=== PATIENT | male | born 1950 | race Two or more races ===

== ENCOUNTER 2017-01-01 08:36 | Day surgery (SDC) | payer OTHER ==
[2017-01-01] VITALS (9 sets, daily range): BP systolic 149–163; BP diastolic 66–81; PULSE 52–72; RESP 14–24; Ht 162.6 cm; Wt 79.7 kg
[~2017-01-01] VITALS: Ht 162.6 cm; Wt 79.7 kg
[2017-01-01] MEDS ORDERED: SOD CHLORIDE 0.9% 1,000 ML IV ONE (09:00)
[2017-01-01] MEDS ORDERED: CEFAZOLIN 2 GM/50 ML (PMX) 50 ML IVPB ONE (09:00)
[2017-01-01 10:18] LABS: ADD SCAN DIFF NO
[2017-01-01 10:36] LABS: BASOPHIL # 0.1 10^3/ul (0.0-0.1); BASOPHILS % 0.6 % (0.0-2.0); EOSINOPHILS # 1.2 10^3/ul (0.0-0.5); EOSINOPHILS % 11.3 % (0.0-7.0); HEMOGLOBIN 13.1 g/dl (14.0-18.0); LYMPHOCYTES % 48.1 % (15.0-51.0); MEAN CORPUSCULAR HEMOGLOBIN 29.8 pg (29.0-33.0); MEAN CORPUSCULAR HGB CONC 32.8 g/dl (32.0-37.0); MEAN CORPUSCULAR VOLUME 90.9 fl (82.0-101.0); MEAN PLATELET VOLUME 9.9 fl (7.4-10.4); MONOCYTE # 0.6 10^3/ul (0.3-0.9); NEUTROPHIL # 3.5 10^3/ul (1.6-7.5); NEUTROPHILS % 33.7 % (39.0-77.0); PLATELET COUNT 273 10^3/UL (140-415); RED CELL DISTRIBUTION WIDTH 12.5 % (11.5-14.5); WHITE BLOOD COUNT 10.3 10^3/ul (4.8-10.8)
--- NOTE | 2017-01-01 10:37 | RADRPT ---
PROCEDURE: XR Chest. CLINICAL INDICATION: Preoperative, left shoulder mass TECHNIQUE: Single frontal view of the chest was obtained COMPARISON: None FINDINGS: The heart and mediastinum are within normal limits. The lungs are clear. There is no pleural effusion or pneumothorax. RPTAT: AA IMPRESSION: No acute disease. .Agustin Hernández MD, MD Date Time Electronically viewed and signed by .Agustin Hernández MD, on 01/01/2017 10:37 .S/
[2017-01-01] MEDS ORDERED: FINA5TAB4 PO (10:48)
[2017-01-01] MEDS ORDERED: TAMS0.4C2 PO (10:49)
[2017-01-01 10:57] LABS: ALBUMIN 4.6 g/dl (3.3-4.9); ALBUMIN/GLOBULIN RATIO 2.09; BILIRUBIN,INDIRECT 0.3 mg/dl (0-1.1); BILIRUBIN,TOTAL 0.3 mg/dl (0.2-1.3); TOTAL PROTEIN 6.8 g/dl (6.1-8.1)
[2017-01-01 10:59] LABS: INR 1.01; PARTIAL THROMBOPLASTIN TIME 33.2 Sec (25.0-35.0); PROTIME 13.3 Sec (12.2-14.2)
[2017-01-01 11:02] LABS: CALCIUM 9.3 mg/dl (8.4-10.2); CREATININE 0.85 mg/dl (0.61-1.24); POTASSIUM 4.4 mmol/L (3.5-5.1)
[2017-01-01] MEDS ORDERED: MIDAZOLAM 1 MG/ML 2 ML INJ ONE (11:05)
[2017-01-01] MEDS ORDERED: FENTAnyl 50 MCG/ML VIAL ONE (11:06)
[2017-01-01] MEDS ORDERED: BUPIVACAINE 0.25% (MPF) 30 ML INJ ONE (11:21)
[2017-01-01] MEDS ORDERED: FENTAnyl 50 MCG/ML VIAL IV PRN (11:30)
[2017-01-01] MEDS ORDERED: hydrALAzine 20 MG INJ IV PRN (11:30)
[2017-01-01] MEDS ORDERED: DIPHENHYDRAMINE 50 MG INJ IV PRN (11:30)
[2017-01-01] MEDS ORDERED: ONDANSETRON 4 MG INJ IV PRN (11:30)
[2017-01-01] MEDS ORDERED: MEPERIDINE 25 MG INJ IV PRN (11:30)
[2017-01-01] MEDS ORDERED: LIDOCAINE 2% (SDV) 5 ML INJ ONE (11:48)
[2017-01-01] MEDS ORDERED: CEFAZOLIN 1 GM INJ ONE (11:48)
[2017-01-01] MEDS ORDERED: PROPOFOL 20 ML ONE (11:48)
[2017-01-01] MEDS ORDERED: ONDANSETRON 4 MG INJ ONE (11:49)
--- NOTE | 2017-01-01 12:08 | OPR ---
DATE OF OPERATION: 01/01/2017 PREOPERATIVE DIAGNOSIS: Left shoulder mass. POSTOPERATIVE DIAGNOSIS: Left shoulder mass. OPERATION PERFORMED: Resection of left shoulder mass with local skin flap advancement closure. ANESTHESIA: General. ANESTHESIOLOGIST: Silvio Aleman MD SURGEON: Dr. Hamilton SALES ENGINEER: Dr. Andrade INDICATIONS FOR PROCEDURE: The patient is a 66-year-old male who presented with an enlarging left s houlder mass, clinically benign, such as a large epidermal inclusion cyst or lipoma. 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 He consented and was scheduled for surgery. DESCRIPTION OF PROCEDURE: The patient was brought to the operating theater and placed under general anesthesia. He was then put in the lateral position with the left side up. The left shoulder in t he region of the mass was prepped and draped in the usual sterile fashion. The mass was at least 6 to 8 cm in diameter. An approximately 8-cm incision was made transversely over the mass. The subcut aneous tissue was dissected with cautery. In the subcutaneous space, a very well encapsulated mass was encountered. It was clinically consistent with a probable epidermal inclusion cyst. It was cir cumferentially dissected down to the deltoid muscle. It was then transected, removed, and sent for p ermanent pathologic analysis. The wound was irrigated. Minimal bleeding was controlled with cauter y. The area was infiltrated with 0.5% Marcaine local anesthetic with epinephrine, and the skin was then reapproximated with 2-0 nylon sutures in interrupted fashion. The patient tolerated the proced ure well. Estimated blood loss was 20 mL. There were no complications and the patient was transpor kenna in stable condition to the recovery room. Dictated By: YANIQUE PYLE/KYLEE Conf#: [id number] DID#: [id number]
--- NOTE | 2017-01-02 16:59 | RADRPT ---
Vent Rate: 44 bpm RR Interval: 0 msec VT Interval: 180 msec QRS Duration: 94 msec QT Interval: 450 msec QTC Interval: 384 msec P-R-T [place]: 47 - 62 - 58 degrees Marked sinus bradycardia Abnormal ECG No previous tracing available for comparison Electronically Signed By: Gustavo Campbell [id number]
== END 2017-01-01 13:30 | disposition home or self-care (01) ==
LOC: SDS 08:36
PROVIDERS: ATTEND Surgery Surgical Oncology
DX: L72.0 Epidermal cyst (principal); N40.0 Benign prostatic hyperplasia without lower urinary tract symptoms
CPT/HCPCS: 14000; 71010; 80053; 85025; 85610; 85730; 88304; 93005; J0690; J2250; J2405; J3010

== ENCOUNTER 2017-02-22 00:36 | Emergency (ER) | payer OTHER ==
[~2017-02-22] VITALS: Ht 167.6 cm; Wt 77.3 kg
[~2017-02-22 00:36] MED LIST: FINA5TAB4 PO; TAMS0.4C2 PO
[2017-02-22 00:42] VITALS: Ht 167.6 cm; Wt 77.3 kg
[2017-02-22] MEDS ORDERED: ONDANSETRON 4 MG INJ IV STA (00:52)
[2017-02-22] MEDS ORDERED: SOD CHLORIDE 0.9% 1,000 ML IV STA (00:52)
[2017-02-22] MEDS ORDERED: morphine 4 MG/ML VIAL IV STA (00:52)
--- NOTE | 2017-02-22 01:54 | RADRPT ---
PROCEDURE: CT Abdomen and pelvis without contrast. CLINICAL INDICATION: Abdominal pain. TECHNIQUE: CT scan of the abdomen and pelvis was performed on a multi-detector high-resolution CT scanner. Contiguous axial images were obtained from the lung bases to the ischial tuberosities wit hout intravenous contrast. Coronal and sagittal reformatted images were also obtained. Images were reviewed on the PACS workstation. One or more of the following dose reduction techniques were used: - Automated exposure control. - Adjustment of the mA and/or kV according to patient size. - Use of iterative reconstruction technique. Exam CTD/vol = 13.58 mGy. Total exam DLP = 893.48 mGy-cm. COMPARISON: None. FINDINGS: Evaluation of the lung bases demonstrates no pleural or parenchymal disease. Abdomen: The liver is normal in size. There is a cyst within the right lobe of the liver measuring 4.3 x 4.2 cm. There is no dilatation of the biliary tree. The gallbladder is not distended. The spleen, pancreas and bilateral adrenal glands are within normal limits. Bilateral kidneys are dayron l in size with no contour deforming mass identified. There is no radiopaque renal or ureteral calcu rikki identified. There is no hydronephrosis or hydroureter. There is no retroperitoneal adenopathy. The abdominal aorta is of normal caliber with mild scattered atherosclerotic calcifications. There are scattered diverticuli within the descending colon and diverticulosis of the sigmoid colon without evidence of diverticulitis. There is no bowel obstruction or free air. A normal appendix i s identified. There is no ascites. Pelvis: The bladder is unremarkable. The prostate and seminal vesicles are within normal limits. There is no significant pelvic adenopathy or free fluid. Evaluation of the osseous structures demonstrates no suspicious lytic or blastic lesion. There are d efects of bilateral pars interarticularis of L5 with grade 1 anterolisthesis of L5 on S1 measuring 6 mm in AP diameter. IMPRESSION: No acute abnormality identified within the abdomen and pelvis. Colonic diverticulosis without evidence of diverticulitis. Hepatic cyst. Mild vascular calcifications reflective of atherosclerosis. Bilateral pars defects of L5 with grade 1 anterolisthesis of L5 on S1. .Christopher Laurent MD, Date Time Electronically viewed and signed by .Christopher Laurent MD, on 02/22/2017 01:54 .T/
[2017-02-22 01:55] LABS: ABNORMAL IP MESSAGE 1; BASOPHIL # 0.1 10^3/ul (0.0-0.1); BASOPHILS % 0.5 % (0.0-2.0); EOSINOPHILS # 0.7 10^3/ul (0.0-0.5); EOSINOPHILS % 3.9 % (0.0-7.0); HEMATOCRIT 40.5 % (42.0-52.0); HEMOGLOBIN 13.5 g/dl (14.0-18.0); LYMPHOCYTES # 5.5 10^3/ul (0.8-2.9); LYMPHOCYTES % 32.4 % (15.0-51.0); MEAN CORPUSCULAR HEMOGLOBIN 29.5 pg (29.0-33.0); MEAN CORPUSCULAR HGB CONC 33.3 g/dl (32.0-37.0); MEAN CORPUSCULAR VOLUME 88.4 fl (82.0-101.0); MONOCYTE # 0.7 10^3/ul (0.3-0.9); MONOCYTES % 4.3 % (0.0-11.0); NEUTROPHIL # 9.9 10^3/ul (1.6-7.5); NEUTROPHILS % 58.5 % (39.0-77.0); PLATELET COUNT 305 10^3/UL (140-415); POSITIVE DIFF @See below; RED BLOOD COUNT 4.58 10^6/ul (4.70-6.10)
--- NOTE | 2017-02-22 01:57 | RADRPT ---
PROCEDURE: Abdominal ultrasound, limited. CLINICAL INDICATION: Abdominal pain. TECHNIQUE: Multiple real-time images were acquired of the patient's right upper abdomen utilizing a high resolution transducer. COMPARISON: None FINDINGS: The liver demonstrates normal echogenicity and size measuring 16.3 cm. There is a cyst within the r ight lobe of the liver measuring 3.5 x 4.3 x 3.9 cm. There is no intrahepatic biliary ductal dilata tion. The portal vein is patent. The gallbladder is not distended. Multiple echogenic gallstones are identified. There is no pericholecystic fluid or gallbladder wall thickening. The common bile duct measures 3.8 mm in maximal dimension. The visualized portions of the pancreas are unremarkable . No free fluid is identified. The right kidney is normal size and echogenicity measuring 9.2 cm. There is no focal renal mass or echogenic calculus identified. There is no obstructive uropathy. IMPRESSION: Cholelithiasis without ultrasound evidence of cholecystitis. Hepatic cyst. .Christopher Laurent MD, MD Date Time Electronically viewed and signed by .Christopher Laurent MD, MD on 02/22/2017 01:56 .T/
[2017-02-22 02:06] LABS: ADD UMIC YES; UR ASCORBIC ACID NEGATIVE (NEGATIVE); UR BILIRUBIN (Dip) NEGATIVE (NEGATIVE); UR BLOOD (Dip) 1+ mg/dL (NEGATIVE); UR CLARITY CLEAR (CLEAR); UR COLOR YELLOW (YELLOW); UR GLUCOSE (Dip) NEGATIVE (NEGATIVE); UR KETONES (Dip) TRACE mg/dL (NEGATIVE); UR LEUKOCYTE ESTERASE (Dip) NEGATIVE Leu/ul (NEGATIVE); UR NITRITE (Dip) NEGATIVE (NEGATIVE); UR RBC 2 /HPF (0-5); UR SPECIFIC GRAVITY (Dip) 1.021 (1.003-1.030); UR TOTAL PROTEIN (Dip) 1+ mg/dl (NEGATIVE); UR UROBILINOGEN (Dip) NEGATIVE (NEGATIVE)
[2017-02-22] MEDS ORDERED: HYDROmorphONE 1 MG/ML SYG IV STA (02:15)
[2017-02-22 02:24] LABS: ALANINE AMINOTRANSFERASE 32 IU/L (13-69); ALBUMIN 4.5 g/dl (3.3-4.9); ALKALINE PHOSPHATASE 124 IU/L (42-121); ANION GAP 23 (8-16); ASPARTATE AMINO TRANSFERASE 25 IU/L (15-46); BILIRUBIN,INDIRECT 0.2 mg/dl (0-1.1); BILIRUBIN,TOTAL 0.2 mg/dl (0.2-1.3); BLOOD UREA NITROGEN 15 mg/dl (7-20); CALCIUM 9.5 mg/dl (8.4-10.2); CARBON DIOXIDE 26 mmol/L (21-31); CHLORIDE 100 mmol/L (97-110); CREATININE 0.88 mg/dl (0.61-1.24); GLUCOSE 148 mg/dl (70-220); POTASSIUM 3.2 mmol/L (3.5-5.1); SODIUM 146 mmol/L (135-144); TOTAL PROTEIN 7.5 g/dl (6.1-8.1)
[2017-02-22 03:05] LABS: TROPONIN-I < 0.012 ng/ml (0.00-0.12)
[2017-02-22] MEDS ORDERED: HYDR-902 PO (03:30)
[2017-02-22] MEDS ORDERED: ONDA4TAB14 PO (03:30)
--- NOTE | 2017-02-22 03:33 | ERD ---
ER Documentation Chief Complaint Date/Time DATE: 02/22/17 TIME: 03:33 Chief Complaint mid upper ap radiating to back since 9pm +vomiting HPI Patient is a 67-year-old male with BPH who presents with abdominal pain. The patient has right upper quadrant abdominal pain and epigastric pain which started at 1 AM. He said that he tried "a medicine" but does not know what it was. He has had this before. He has stones in his gallbladder seen previously. He has vomiting but no fevers. His primary doctor is Dr. Robbins. The pain was sharp in nature and severe. ROS All systems reviewed and are negative except as per history of present illness. Medications Home Meds Active Scripts Ondansetron (Ondansetron Odt) 4 Mg Tab.rapdis, 4 MG PO Q6H Y for NAUSEA AND/OR VOMITING, #30 TAB Prov:STANLEY CORTES MD 02/22/17 Hydrocodone/Acetaminophen ([place] 10-325 Tablet) 1 Each Tablet, 1 TAB PO Q6H Y for PAIN, #12 TAB Prov:STANLEY CORTES MD 02/22/17 Reported Medications Tamsulosin Hcl* (Tamsulosin Hcl*) 0.4 Mg Cap.er.24h, 0.4 MG PO HS, CAP 01/01/17 Finasteride* (Finasteride*) 5 Mg Tablet, 5 MG PO DAILY, TAB 01/01/17 Allergies Allergies: Coded Allergies: No Known Allergy (Unverified , 02/22/17) PMhx/Soc History of Surgery: Yes (back cyst removal) Anesthesia Reaction: No Hx Neurological Disorder: No Hx Respiratory Disorders: No Hx Cardiac Disorders: No Hx Psychiatric Problems: No Hx Miscellaneous Medical Probl: Yes (BPH) Hx Alcohol Use: Yes (occasionally) Hx Substance Use: No Hx Tobacco Use: No (quit) Smoking Status: Former smoker FmHx Family History: diabetes Physical Exam Vitals Vital Signs Date Time Temp Pulse Resp B/P Pulse Ox O2 Delivery O2 Flow Rate FiO2 02/22/17 03:45 63 14 164/81 95 Room Air 02/22/17 03:00 57 19 180/81 100 Room Air 02/22/17 02:00 60 21 184/93 100 Room Air 02/22/17 00:42 97.8 58 28 185/83 100 Physical Exam Const: Moderate distress secondary to pain Head: Atraumatic Eyes: Normal Conjunctiva ENT: Normal External Ears, Nose and Mouth. Neck: Full range of motion..~ No meningismus. Resp: Clear to auscultation bilaterally Cardio: Regular rate and rhythm, no murmurs Abd: Soft, epigastric tenderness to palpation without rebound or guarding Skin: No petechiae or rashes Back: No midline or flank tenderness Ext: No cyanosis, or edema Neur: Awake and alert Psych: Normal Mood and Affect Result Diagram: 02/22/17 0128 02/22/17 0128 Results 24 hrs Laboratory Tests Test 02/22/17 01:15 02/22/17 01:28 Urine Color YELLOW Urine Clarity CLEAR Urine pH 5.0 Urine Specific [place] 1.021 Urine Ketones TRACEmg/dL Urine Nitrite NEGATIVEmg/dL Urine Bilirubin NEGATIVEmg/dL Urine Urobilinogen NEGATIVEmg/dL Urine Leukocyte Esterase NEGATIVELeu/ul Urine Microscopic RBC 2/HPF Urine Microscopic WBC 1/HPF Urine Hemoglobin 1+mg/dL Urine Glucose NEGATIVEmg/dL Urine Total Protein 1+mg/dl White Blood Count 17.010^3/ul Red Blood Count 4.5810^6/ul Hemoglobin 13.5g/dl Hematocrit 40.5% Mean Corpuscular Volume 88.4fl Mean Corpuscular Hemoglobin 29.5pg Mean Corpuscular Hemoglobin Concent 33.3g/dl Red Cell Distribution Width 13.0% Platelet Count 78047^3/UL Mean Platelet Volume 10.0fl Neutrophils % 58.5% Lymphocytes % 32.4% Monocytes % 4.3% Eosinophils % 3.9% Basophils % 0.5% Nucleated Red Blood Cells % 0.0/100WBC Neutrophils # 9.910^3/ul Lymphocytes # 5.510^3/ul Monocytes # 0.710^3/ul Eosinophils # 0.710^3/ul Basophils # 0.110^3/ul Nucleated Red Blood Cells # 0.010^3/ul Sodium Level 146mmol/L Potassium Level 3.2mmol/L Chloride Level 100mmol/L Carbon Dioxide Level 26mmol/L Anion Gap 23 Blood Urea Nitrogen 15mg/dl Creatinine 0.88mg/dl Glucose Level 148mg/dl Calcium Level 9.5mg/dl Total Bilirubin 0.2mg/dl Direct Bilirubin 0.00mg/dl Indirect Bilirubin 0.2mg/dl Aspartate Amino Transf (AST/SGOT) 25IU/L Alanine Aminotransferase (ALT/SGPT) 32IU/L Alkaline Phosphatase 124IU/L Troponin I < 0.012ng/ml Total Protein 7.5g/dl Albumin 4.5g/dl Globulin 3.00g/dl Albumin/Globulin Ratio 1.50 Lipase 60U/L Current Medications Medications (Trade) Dose Ordered Sig/Jamil Route PRN Reason Start Time Stop Time Status Last Admin Dose Admin Sodium Chloride (NS) 1,000 ml @ 1,000 mls/hr Q1H STAT IV 02/22/17 00:52 02/22/17 01:51 DC 02/22/17 01:36 Morphine Sulfate (morphine) 4 mg ONCE STAT IV 02/22/17 00:52 02/22/17 00:54 DC 02/22/17 01:36 Ondansetron HCl (Zofran Inj) 4 mg ONCE STAT IV 02/22/17 00:52 02/22/17 00:54 DC 02/22/17 01:36 Hydromorphone HCl (Dilaudid) 1 mg ONCE STAT IV 02/22/17 02:15 02/22/17 02:16 DC 02/22/17 02:46 Procedures/MDM EKG read by me: Rate/Rhythm: Sinus bradycardia rate of 59 Intervals: Normal Impression: Sinus bradycardia without ischemia Ultrasound of the gallbladder shows gallstones without cholecystitis per radiology. CT of the abdomen pelvis shows no obvious surgical process per radiology. Patient is a 67-year-old male with BPH who presents with abdominal pain. The patient's ultrasound shows gallstones but no cholecystitis. CT scan of the abdomen and pelvis shows no signs of surgical process. The patient has an elevated white blood cell count but LFTs and lipase were basically normal. At this point I doubt cholecystitis, pancreatitis, appendicitis, or bowel obstruction. The patient feels much better after treatment with pain medications and Zofran. The patient will be discharged home with prescription for Dan[place] and Zofran. However he will need close follow-up with his primary doctor within 24 hours for evaluation. Departure Diagnosis: Primary Impression: Abdominal pain Abdominal location: epigastric Qualified Code: R10.13 - Epigastric pain Condition: Fair Patient Instructions: Abdominal Pain Referrals: ARVIN ROBBINS (PCP) Additional Instructions: Visite a garcia mdico maana para un EXAMEN.Regrese a estas instalaciones si no se mejora tasia esperbamos o tasia le dijimos. STANLEY CORTES MD Feb 22, 2017 03:33
[2017-02-22 04:11] VITALS: BP 158/69; PULSE 60; RESP 14; TEMP 98.6
== END 2017-02-22 04:13 | disposition home or self-care (01) ==
LOC: E/R 00:36
DX: R10.13 Epigastric pain (principal); R40.2252 Coma scale, best verbal response, oriented, at arrival to emergency department; R11.10 Vomiting, unspecified; R40.2142 Coma scale, eyes open, spontaneous, at arrival to emergency department; R40.2362 Coma scale, best motor response, obeys commands, at arrival to emergency department; Z87.891 Personal history of nicotine dependence
CPT/HCPCS: 36415; 74176; 76705; 80053; 81001; 83690; 84484; 85025; 93005; 96374; 96375; J1170; J2270; J2405; J7030; Z7502

== ENCOUNTER 2018-01-28 16:41 | Emergency (ER) | END 2018-01-28 21:45 | disposition home or self-care (01) ==

== ENCOUNTER 2018-08-08 19:47 | Emergency (ER) | payer OTHER ==
[~2018-08-08] VITALS: Ht 172.7 cm; Wt 83.2 kg
[~2018-08-08 19:47] MED LIST changes: +CIPR500T4 PO; +HYDR-3980 PO; +HYDR-4011 PO; +IBUP-1542 PO; +METR500T PO; +ONDA4TAB14 PO
[2018-08-08 19:48] VITALS: Ht 172.7 cm; Wt 83.2 kg
[2018-08-09] MEDS ORDERED: TYL500 PO (00:09)
[2018-08-09 00:19] VITALS: BP 142/72; PULSE 51; RESP 18
--- NOTE | 2018-08-09 07:03 | ERD ---
ER Documentation Chief Complaint Chief Complaint ABD PAIN WITH NAUSEA, NO VOMITING XTODAY; HX OF GALLSTONES HPI 68-year-old male presents for abdominal pain and nausea times 1 day. The abd ominal pain is noted to be intermittent, located in the epigastric area. He denies any vomiting. Does have history of gallstones. States he has a appointment with general surgery in about a week however he developed abdominal pain and wanted to come to the ER. Denies any diarrhea. Patient does have a past medical history of chronic lymphocytic leukemia, currently getting follow- up at the [facility]ology [facility] in [place] with Dr. Kelly. He did have a normal bowel movement this afternoon. He denies any abdominal pain currently. No other complaints. ROS All systems reviewed and are negative except as per history of present illness. Medications Home Meds Active Scripts Acetaminophen* (Tylenol*) 500 Mg Tab, 500 MG PO Q4H PRN for MILD PAIN LEVEL 1-3, #30 TAB Prov:SALMA BORJAS DO 08/09/18 Metronidazole* (Flagyl*) 500 Mg Tablet, 500 MG PO BID for 7 Days, TAB Prov:ROBIN ARAIZA MD 01/28/18 Ibuprofen* (Motrin*) 600 Mg Tab, 600 MG PO Q6, #15 TAB Prov:ROBIN ARAIZA MD 01/28/18 Ciprofloxacin Hcl* (Ciprofloxacin Hcl*) 500 Mg Tablet, 500 MG PO BID for 7 Days, TAB Prov:ROBIN ARAIZA MD 01/28/18 Hydrocodone/Acetaminophen ([place] 5-325 Tablet) 1 Each Tablet, 1 TAB PO Q6H PRN for PAIN, #12 TAB Prov:ROBIN ARAIZA MD 01/28/18 Ondansetron (Ondansetron Odt) 4 Mg Tab.rapdis, 4 MG PO Q6H PRN for NAUSEA AND/OR VOMITING, #30 TAB Prov:STANLEY CORTES MD 02/22/17 Hydrocodone/Acetaminophen ([place] 10-325 Tablet) 1 Each Tablet, 1 TAB PO Q6H PRN for PAIN, #12 TAB Prov:STANLEY CORTES MD 02/22/17 Reported Medications Tamsulosin Hcl* (Tamsulosin Hcl*) 0.4 Mg Cap.er.24h, 0.4 MG PO HS, CAP 01/01/17 Finasteride* (Finasteride*) 5 Mg Tablet, 5 MG PO DAILY, TAB 01/01/17 Allergies Allergies: Coded Allergies: No Known Allergy (Unverified , 02/22/17) PMhx/Soc History of Surgery: Yes (back cyst removal) Anesthesia Reaction: No Hx Neurological Disorder: No Hx Respiratory Disorders: No Hx Cardiac Disorders: No Hx Psychiatric Problems: No Hx Miscellaneous Medical Probl: Yes (BPH) Hx Alcohol Use: Yes (occasionally) Hx Substance Use: No Hx Tobacco Use: No (quit) Smoking Status: Former smoker Physical Exam Vitals Vital Signs Date Temp Pulse Resp B/P (MAP) Pulse Ox O2 O2 Flow FiO2 Time Delivery Rate 08/09/18 98.8 51 18 142/72 98 Room Air 00:19 (95) 08/08/18 97.3 67 18 133/75 98 19:48 (94) Physical Exam Const: No acute distress Resp: Clear to auscultation bilaterally Cardio: Regular rate and rhythm, no murmurs Abd: Soft, non distended. Normal bowel sounds, mild epigastric and right upper quadrant tenderness to palpation, no McBurney's point tenderness, no Pena sign, no rebound or guarding noted Skin: No petechiae or rashes Back: No midline or flank tenderness Ext: No cyanosis, or edema Neur: Awake and alert Psych: Normal Mood and Affect Results 24 hrs Laboratory Tests Test 08/08/18 22:22 08/10/18 11:32 White Blood Count 15.7 10^3/ul Red Blood Count 4.55 10^6/ul Hemoglobin 13.8 g/dl Hematocrit 41.8 % Mean Corpuscular Volume 91.9 fl Mean Corpuscular Hemoglobin 30.3 pg Mean Corpuscular Hemoglobin Concent 33.0 g/dl Red Cell Distribution Width 12.4 % Platelet Count 380 10^3/UL Mean Platelet Volume 9.7 fl Immature Granulocytes % 0.300 % Neutrophils % % Segmented Neutrophils % (Manual) 36 % Band Neutrophils % (Manual) 2 % Lymphocytes % % Lymphocytes % (Manual) 52 % Reactive Lymphocytes % (Manual) 2 % Monocytes % % Monocytes % (Manual) 4 % Eosinophils % % Eosinophils % (Manual) 2 % Basophils % % Basophils % (Manual) 2 % Nucleated Red Blood Cells % 0.0 /100WBC Immature Granulocytes # 0.050 10^3/ul Neutrophils # 10^3/ul Neutrophils # (Manual) 5.7 10^3/ul Band Neutrophils # 0.3 10^3/ul Lymphocytes (Manual) 8.1 10^3/ul Lymphocytes # 10^3/ul Reactive Lymphocytes # 0.3 10^3/ul Monocytes # 10^3/ul Monocytes # (Manual) 0.6 10^3/ul Eosinophils # 10^3/ul Basophils # 10^3/ul Basophils # (Manual) 0.3 10^3/ul Nucleated Red Blood Cells # 10^3/ul Platelet Estimate NORMAL Polychromasia 1+ Anisocytosis 1+ Urine Color YELLOW Urine Clarity SLIGHTLY CLOUDY Urine pH 5.0 Urine Specific [place] 1.028 Urine Ketones NEGATIVE mg/dL Urine Nitrite NEGATIVE mg/dL Urine Bilirubin NEGATIVE mg/dL Urine Urobilinogen 1+ mg/dL Urine Leukocyte Esterase NEGATIVE Javier/ul Urine Microscopic RBC 1 /HPF Urine Microscopic WBC 1 /HPF Urine Bacteria FEW /HPF Urine Mucus MANY /HPF Urine Hemoglobin NEGATIVE mg/dL Urine Glucose NEGATIVE mg/dL Urine Total Protein NEGATIVE mg/dl Miscellaneous Test Sodium Level 141 mmol/L Potassium Level 4.0 mmol/L Chloride Level 105 mmol/L Carbon Dioxide Level 30 mmol/L Anion Gap 6 Blood Urea Nitrogen 20 mg/dl Creatinine 1.06 mg/dl Est Glomerular Filtrat Rate mL/min > 60 mL/min Glucose Level 103 mg/dl Calcium Level 9.8 mg/dl Total Bilirubin mg/dl Direct Bilirubin mg/dl Indirect Bilirubin mg/dl Aspartate Amino Transf (AST/SGOT) 149 IU/L Alanine Aminotransferase (ALT/SGPT) 62 IU/L Alkaline Phosphatase 124 IU/L Total Protein 7.5 g/dl Albumin 4.5 g/dl Globulin 3.00 g/dl Albumin/Globulin Ratio 1.50 Lipase 75 U/L Lab Scanned Report REFER[facility] LAB [id number] Procedures/MDM Medical Decision Making: Differential diagnosis includes but not limited to acute gastritis, acute gastroenteritis, appendicitis, cholecystitis, pancreatitis. Patient appeared well on physical exam. Nontoxic appearing. Labs: CBC showed mild anemia, mildly elevated white count. CMP showed no electrolyte abnormalities, there was normal kidney function, mild transaminitis. Total bilirubin level was initially sent out however the results came back within normal limits. Lipase was normal UA was negative for infection Given the location of the pain and the colicky nature, patient likely has biliary colic. Given normal total bilirubin level, most likely no indication for emergency surgery for patient's gallbladder. Patient advised to keep his appointment with general surgery. Prescription(s): Patient given prescription for Tylenol. Patient advised to follow up with PCP in 1-2 days. Patient advised to return to ED for new or worsening symptoms. Patient stable on discharge from the ED. Disclaimer: Inadvertent spelling and grammatical errors are likely due to EHR/dictation software use and do not reflect on the overall quality of patient care. Also, please note that the electronic time recorded on this note does not necessarily reflect the actual time of the patient encounter. Departure Diagnosis: Primary Impression: Abdominal pain Additional Impression: Biliary colic Condition: Fair Patient Instructions: Abdominal Pain, Biliary Colic With Gallstone (Confirmed) Referrals: [facility] YOU HAVE RECEIVED A MEDICAL SCREENING EXAM AND THE RESULTS INDICATE THAT YOU DO NOT HAVE A CONDITION THAT REQUIRES URGENT TREATMENT IN THE EMERGENCY DEPARTMENT. FURTHER EVALUATION AND TREATMENT OF YOUR CONDITION CAN WAIT UNTIL YOU ARE SEEN IN YOUR DOCTORS OFFICE WITHIN THE NEXT 1-2 DAYS. IT IS YOUR RESPONSIBILITY TO MAKE AN APPOINTMENT FOR FOLOW-UP CARE. IF YOU HAVE A PRIMARY DOCTOR --you should call your primary doctor and schedule an appointment IF YOU DO NOT HAVE A PRIMARY DOCTOR YOU CAN CALL OUR PHYSICIAN REFERRAL HOTLINE AT IF YOU CAN NOT AFFORD TO SEE A PHYSICIAN YOU CAN CHOSE FROM THE FOLLOWING [facility] [address] [facility]. [facility] [address] [facility] [facility] [address] [facility]. [facility] [address] [facility] [address] [facility]. [facility]. [address] Additional Instructions: Call your primary care doctor TOMORROW for an appointment during the next 1-2 days.See the doctor sooner or return here if your condition worsens before your appointment time. SALMA BORJAS DO Aug 09, 2018 07:03
== END 2018-08-09 00:20 | disposition home or self-care (01) ==
LOC: FTE 19:47
DX: K80.50 Calculus of bile duct without cholangitis or cholecystitis without obstruction (principal); Z87.891 Personal history of nicotine dependence
CPT/HCPCS: 36415; 80053; 81001; 83690; 85025; Z7502; 81003; 99283

== ENCOUNTER 2018-10-03 08:32 | Day surgery (SDC) | payer OTHER ==
[2018-10-03] VITALS (13 sets, daily range): BP systolic 95–140; BP diastolic 36–66; PULSE 56–80; RESP 15–20; Ht 162.6 cm; Wt 81.0 kg
[~2018-10-03] VITALS: Ht 162.6 cm; Wt 81.0 kg
[~2018-10-03 08:32] MED LIST changes: +CEFAZOLIN 1 GM INJ ONE; +CEFAZOLIN 2 GM/50 ML (PMX) 50 ML IVPB SCH; +DEXAMETHASONE 4 MG/ML 5 ML INJ ONE; +SOD CHLORIDE 0.9% 1,000 ML IV SCH; +TYL500 PO
[2018-10-03] MEDS ORDERED: FINA5TAB4 PO (09:04)
[2018-10-03] MEDS ORDERED: TAMS0.4C2 PO (09:04)
[2018-10-03] MEDS ORDERED: FENTAnyl 50 MCG/ML VIAL ONE (10:46)
[2018-10-03] MEDS ORDERED: MIDAZOLAM 1 MG/ML 2 ML INJ ONE (10:47)
[2018-10-03] MEDS ORDERED: METOCLOPRAMIDE 10 MG INJ ONE (10:47)
[2018-10-03] MEDS ORDERED: PROPOFOL 20 ML ONE (10:49)
[2018-10-03] MEDS ORDERED: SUCCINYLCHOLINE CHLORIDE 100 MG/5 ML SYG IV ONE (10:49)
[2018-10-03] MEDS ORDERED: ROCURONIUM 50 MG INJ ONE ×2 (10:49)
[2018-10-03] MEDS ORDERED: LIDOCAINE 2% (SDV) 5 ML INJ ONE (10:49)
[2018-10-03] MEDS ORDERED: ROPIVACAINE 0.5 % 30 ML VIAL ONE (10:51)
--- NOTE | 2018-10-03 11:12 | HPN ---
Date/Time of Note Date/Time of Note DATE: 10/03/18 TIME: 11:12 Interval H&P Admission Note Pt. seen H&P reviewed: No system changes SALMA PATTON MD Oct 03, 2018 11:12
[2018-10-03] MEDS ORDERED: BUPIVACAINE 0.5%/EPI (SDV) 30 ML INJ INJ ONE (11:55)
--- NOTE | 2018-10-03 11:57 | PREAC ---
Date/Time of Note Date/Time of Note DATE: 10/03/18 TIME: 11:55 Anesthesia Eval and Record Evaluation Time Pre-Procedure Interview DATE: 10/03/18 TIME: 11:20 Pt preoped before computer access problems. Consent obtained AFTER interview Age 68 Sex male NPO: 8 hrs Preoperative diagnosis gallstones Planned procedure lap jes Past Medical History Past Medical History: Includes Cardio: HTN Renal: BPH Heme: Other (leukemia) Surgery & Anesthesia Issues Hx of difficult intubation Meds Anticoagulation: No Beta Mark within 24 hr: No Reason Beta Mark not given: Pt. not on B-Mark Reported Medications Tamsulosin Hcl* (Tamsulosin Hcl*) 0.4 Mg Cap.er.24h, 0.4 MG PO HS, CAP 10/03/18 Finasteride* (Finasteride*) 5 Mg Tablet, 5 MG PO DAILY, TAB 10/03/18 Discontinued Reported Medications Tamsulosin Hcl* (Tamsulosin Hcl*) 0.4 Mg Cap.er.24h, 0.4 MG PO HS, CAP 01/01/17 Finasteride* (Finasteride*) 5 Mg Tablet, 5 MG PO DAILY, TAB 01/01/17 Discontinued Scripts Acetaminophen* (Tylenol*) 500 Mg Tab, 500 MG PO Q4H PRN for MILD PAIN LEVEL 1-3, #30 TAB Prov:SALMA BORJSA DO 08/09/18 Metronidazole* (Flagyl*) 500 Mg Tablet, 500 MG PO BID for 7 Days, TAB Prov:ROBIN ARAIZA MD 01/28/18 Ibuprofen* (Motrin*) 600 Mg Tab, 600 MG PO Q6, #15 TAB Prov:ROBIN ARAIZA MD 01/28/18 Ciprofloxacin Hcl* (Ciprofloxacin Hcl*) 500 Mg Tablet, 500 MG PO BID for 7 Days, TAB Prov:ROBIN ARAIZA MD 01/28/18 Hydrocodone/Acetaminophen ([place] 5-325 Tablet) 1 Each Tablet, 1 TAB PO Q6H PRN for PAIN, #12 TAB Prov:ROBIN ARAIZA MD 01/28/18 Ondansetron (Ondansetron Odt) 4 Mg Tab.rapdis, 4 MG PO Q6H PRN for NAUSEA AND/OR VOMITING, #30 TAB Prov:STANLEY CORTES MD 02/22/17 Hydrocodone/Acetaminophen ([place] 10-325 Tablet) 1 Each Tablet, 1 TAB PO Q6H PRN for PAIN, #12 TAB Prov:STANLEY CORTES MD 02/22/17 Current Medications Cefazolin Sodium/ Dextrose 50 ml @ 100 mls/hr PRE-OP IVPB ; Start 10/03/18 at 06:00 Sodium Chloride 1,000 ml @ 75 mls/hr [id number] IV ; Start 10/03/18 at 06:00; Stop 10/03/18 at 18:00 Meds reviewed: Yes Allergies Coded Allergies: No Known Allergy (Unverified , 02/22/17) Allergies Reviewed: Yes Labs/Studies Labs Reviewed: Reviewed by anesthesiologist test: N/A Studies: ECG, CXR Pre-procedure Exam Last vitals Vital Signs Date Temp Pulse Resp B/P (MAP) Pulse Ox O2 O2 Flow FiO2 Time Delivery Rate 10/03/18 96.7 56 16 140/66 99 09:53 (90) Airway: Adequate mouth opening, Adequate thyromental dist Mallampati: Mallampati III Teeth: Normal Lung: Normal Heart: Normal ASA Physical Status ASA physical status: 2 Emergency: None Planned Anesthetic General/MAC: ETT Planned Pain Management Single shot nerve block, Parenteral pain med, Local by surgeon Pre-operative Attestations Prior to commencing anesthesia and surgery, the patient was re-evaluated, there was verification of: *The patient's identity *The results of appropriate recent lab work and preoperative vital signs *The above evaluation not changing prior to induction *Anesthetic plan, risk benefits, alternative and complications discussed with patient/family; questions answered; patient/family understands, accepts and wishes to proceed. MAURILIO ALANIS MD Oct 03, 2018 11:57
[2018-10-03] MEDS ORDERED: HYDROmorphONE 1 MG/5 ML IV SYRINGE IV PRN ×3 (12:00)
[2018-10-03] MEDS ORDERED: ONDANSETRON 4 MG INJ IV PRN ×2 (12:00→14:00)
[2018-10-03] MEDS ORDERED: IPRATROPIUM (NEB) 0.5 MG/2.5 ML AMP HHN PRN (12:00)
[2018-10-03] MEDS ORDERED: FENTAnyl 50 MCG/ML VIAL IV PRN ×2 (12:00)
[2018-10-03] MEDS ORDERED: DIPHENHYDRAMINE 50 MG INJ IV PRN (12:00)
[2018-10-03] MEDS ORDERED: MEPERIDINE 25 MG INJ IV PRN (12:00)
[2018-10-03] MEDS ORDERED: LEVALBUTEROL (NEB) 1.25 MG/0.5 ML AMP HHN PRN (12:00)
[2018-10-03] MEDS ORDERED: hydrALAzine 20 MG INJ IV PRN (12:00)
[2018-10-03] MEDS ORDERED: LABETALOL HCL 20MG INJ IV PRN (12:00)
[2018-10-03] MEDS ORDERED: HYDROCODONE/APAP (5/325) TAB PO PRN ×2 (14:00)
[2018-10-03] MEDS ORDERED: morphine 2 MG INJ IV PRN (14:00)
[2018-10-03] MEDS ORDERED: IBUPROFEN 600 MG TAB PO PRN (14:00)
[2018-10-03] MEDS ORDERED: KETOROLAC 30 MG INJ IV PRN (14:00)
--- NOTE | 2018-10-03 14:04 | OPR ---
Date/Time of Note Date/Time of Note DATE: 10/03/18 TIME: 13:50 Operative Report Procedure Date: Oct 03, 2018 Preoperative Diagnosis Cholelithiasis/chronic cholecystitis Postoperative Diagnosis 1. Cholelithiasis/chronic cholecystitis 2. Peritoneal adhesions Operation/Procedure Performed 1. Laparoscopic cholecystectomy (modifier 22) 2. Laparoscopic lysis of adhesions, extensive 3. Placement of drain Surgeon see signature line Telesales Supervisor None Anesthesia Type: general Anesthesiologist: MAURILIO ALANIS MD Estimated Blood Loss: 10 - 50 ml's Transfusion none Specimen Gallbladder Grafts/Implants none Tubes/Drains 19 Italian round Leonides drain Complications none Pt Condition Post Procedure: stable Disposition: PACU Indications The patient is a 68-year-old male with a history of CLL, controlled, who presented to the office with intermittent right upper quadrant abdominal pain. The patient had clinical signs and symptoms of chronic cholecystitis/biliary colic which was confirmed via an ultrasound which showed the presence of gallstones. The patient had initially refused surgery, however, he continued to experience pain and discomfort. Therefore, he she was scheduled for laparoscopic cholecystectomy; possible open as definitive treatment to prevent further sequelae of gallstone disease which include but are not limited to: Gangrenous cholecystitis, choledocholithiasis, gallstone pancreatitis, ascending cholangitis, etc. All risks and benefits of the procedure including but not limited to: Wound infection, excessive bleeding, common bile duct injury, postoperative biliary leak, retained common bile duct stone, injury to intra-abdominal organs, conversion to open procedure, possible need for subsequent surgeries, etc. were all explained to the patient in full detail. He fully understood and wished to proceed with the procedure. Informed consent was therefore obtained. Medical clearance was obtained prior to the procedure. Procedure Description The patient was brought to the operating room and placed supine on the operating table. Bilateral sequential compression devices were placed on both lower extremities. A dose of broad-spectrum perioperative intravenous antibiotics was given. After the induction of smooth general endotracheal anesthesia the patient's abdomen was prepped and draped in the standard surgical fashion. After performance of the surgical timeout a 5 mm incision was made in the inferior umbilicus and a Veress needle was used to access the intra-abdominal cavity atraumatically. Pneumoperitoneum was then obtained and the Veress needle was exchanged for a 5 mm trocar through which a 5 mm laparoscope was placed. Diagnostic laparoscopy showed omentum draping over the area of the gallbladder in the right upper quadrant. Three further working ports were then placed a 12 mm port in the sub-xiphoid region and two 5 mm ports in the right upper quadrant. All port sites were anesthetized with 0.5% Marcaine with epinephrine prior to incision. Using atraumatic graspers attempts were made to sweep the omentum off of the gallbladder. However, there were very dense adhesions of the omentum to the gallbladder preventing this. An extensive amount of time was spent in excess of that which is usual and customary for procedure of this type to take down the adhesions of the omentum to the gallbladder. This was done using a combination of blunt dissection, hook electrocautery, and use of the LigaSure vessel sealing device. The gallbladder was then grasped at its fundus and retracted superiorly. Further lysis of adhesions were performed until we were able to grasp the gallbladder near the infundibulum and retract it laterally exposing the area of Galvez's pouch. Dissection was begun in this area using a combination of blunt dissection and hook electrocautery. There were cement-like inflammatory adhesions encountered in the area of the cystic d uct structures. It was decided then to use a dome down technique. The peritoneal attachments of the gallbladder to the liver bed were then taken down using a combination of hook electrocautery and LigaSure device. The cystic artery was transected with the LigaSure device during this process. Once this was complete we had more mobility on the gallbladder and better exposure. At tention was then turned back to the area of the cystic duct structures. Dissection was continued high up near the neck of the gallbladder. The cystic duct was noted to be dilated. Once it was completely dissected free of surrounding tissues the cystic duct was transected using a firing of the laparoscopic JEREMI stapler. Once completely free the gallbladder was placed in an Endo Catch bag and withdrawn through the subxiphoid port site and passed off the field as specimen. Hemostasis was then inspected for and noted to be adequate. The abdomen was then irrigated with several liters of warm normal saline and the irrigant returned crystal clear. Given the severity of the chronic inflammation it was elected to leave a 19 Italian round Leonides drain in the area of the gallbladder fossa. This was brought out through the right lateral most port site, secured in place using a 2-0 nylon suture, and hooked up to bulb suction. Pneumoperitoneum was then released and all remaining trochars were withdrawn under direct vision. The fascia of the subxiphoid port site was reapproximated using 0 Vicryl sutures in [id number] fashion. The subcutaneous tissues were irrigated with more warm normal saline and further local anesthesia was applied around the skin of the incision sites. The skin was then reapproximated using 4-0 Monocryl sutures in subcuticular fashion. The incisions were cleaned and Dermabond was applied to the incisions as well as a drain dressing and the patient was awoken from anesthesia and transported to the recovery room in stable condition. A tap block was performed by the anesthesiologist at the end of the procedure and will be documented by him separately. All counts were correct at the end of the case x 2. Given the complexity of this procedure and extensive amount of time was spent to safely complete the procedure laparoscopically which is in excess of that which is usual and customary to a procedure of this type. Therefore, modifier 22 should be applied. SALMA PATTON MD Oct 03, 2018 14:04
--- NOTE | 2018-10-03 15:15 | PAC ---
Date/Time of Note Date/Time of Note DATE: 10/03/18 TIME: 15:15 Post-Anesthesia Notes Post-Anesthesia Note Last documented vital signs Vital Signs Date Temp Pulse Resp B/P (MAP) Pulse Ox O2 O2 Flow FiO2 Time Delivery Rate 10/03/18 98.0 14:40 10/03/18 56 16 140/66 99 09:53 (90) Activity: WNL Respiratory function: WNL Cardiovascular function: WNL Mental status: Baseline Pain reasonably controlled: Yes Hydration appropriate: Yes Nausea/Vomiting absent: Yes MAURILIO ALANIS MD Oct 03, 2018 15:15
== END 2018-10-03 15:58 | disposition home or self-care (01) ==
LOC: SDS 08:32
PROVIDERS: ATTEND Surgery
DX: K80.10 Calculus of gallbladder with chronic cholecystitis without obstruction (principal); I10 Essential (primary) hypertension
CPT/HCPCS: 47562; 81001; 88304; J0690; J1100; J2250; J2405; J2765; J2795; J3010; Z7512; Z7610

== ENCOUNTER 2018-10-05 16:56 | Emergency (ER) | payer OTHER ==
[~2018-10-05] VITALS: Ht 162.6 cm; Wt 83.4 kg
[~2018-10-05 16:56] MED LIST changes: -CEFAZOLIN 1 GM INJ ONE; -CEFAZOLIN 2 GM/50 ML (PMX) 50 ML IVPB SCH; -CIPR500T4 PO; -DEXAMETHASONE 4 MG/ML 5 ML INJ ONE; -HYDR-3980 PO; -HYDR-4011 PO; -IBUP-1542 PO; -METR500T PO; -ONDA4TAB14 PO; -SOD CHLORIDE 0.9% 1,000 ML IV SCH; -TYL500 PO
[2018-10-05 17:06] VITALS: Ht 162.6 cm; Wt 83.4 kg
--- NOTE | 2018-10-05 19:15 | ERD ---
ER Documentation Chief Complaint Chief Complaint R wound draiin soaked with joaquim drain s/p gallbladder sx HPI 68-year-old male status post cholecystectomy on October 03, [address] Cee, presenting with complaint of drainage around the drain site. He has been emptying the bulb of the drain as well. He noted a lot of leakage around the tube with a saturation of the dressing that was placed after surgery. He denies any increasing abdominal pain, fever, chills. No strenuous activity. He has not been measuring the amount of fluid he has been dumping out of the bulb but does state that there is drainage into the bulb as well. ROS All systems reviewed and are negative except as per history of present illness. Medications Home Meds Reported Medications Tamsulosin Hcl* (Tamsulosin Hcl*) 0.4 Mg Cap.er.24h, 0.4 MG PO HS, CAP 10/03/18 Finasteride* (Finasteride*) 5 Mg Tablet, 5 MG PO DAILY, TAB 10/03/18 Discontinued Reported Medications Tamsulosin Hcl* (Tamsulosin Hcl*) 0.4 Mg Cap.er.24h, 0.4 MG PO HS, CAP 01/01/17 Finasteride* (Finasteride*) 5 Mg Tablet, 5 MG PO DAILY, TAB 01/01/17 Discontinued Scripts Acetaminophen* (Tylenol*) 500 Mg Tab, 500 MG PO Q4H PRN for MILD PAIN LEVEL 1-3, #30 TAB Prov:SALMA BORJAS DO 08/09/18 Metronidazole* (Flagyl*) 500 Mg Tablet, 500 MG PO BID for 7 Days, TAB Prov:ROBIN ARAIZA MD 01/28/18 Ibuprofen* (Motrin*) 600 Mg Tab, 600 MG PO Q6, #15 TAB Prov:ROBIN ARAIZA MD 01/28/18 Ciprofloxacin Hcl* (Ciprofloxacin Hcl*) 500 Mg Tablet, 500 MG PO BID for 7 Days, TAB Prov:ROBIN ARAIZA MD 01/28/18 Hydrocodone/Acetaminophen ([place] 5-325 Tablet) 1 Each Tablet, 1 TAB PO Q6H PRN for PAIN, #12 TAB Prov:ROBIN ARAIZA MD 01/28/18 Ondansetron (Ondansetron Odt) 4 Mg Tab.rapdis, 4 MG PO Q6H PRN for NAUSEA AND/OR VOMITING, #30 TAB Prov:STANLEY CORTES MD 02/22/17 Hydrocodone/Acetaminophen ([place] 10-325 Tablet) 1 Each Tablet, 1 TAB PO Q6H PRN for PAIN, #12 TAB Prov:STANLEY CORTES MD 02/22/17 Allergies Allergies: Coded Allergies: No Known Allergy (Unverified , 02/22/17) PMhx/Soc History of Surgery: Yes (LIPOMA OFF BACK) Anesthesia Reaction: No Hx Neurological Disorder: No Hx Respiratory Disorders: No Hx Cardiac Disorders: No Hx Psychiatric Problems: No Hx Miscellaneous Medical Probl: Yes (CLL - SEE H AND P) Hx Alcohol Use: No Hx Substance Use: No Hx Tobacco Use: No FmHx Family History: No diabetes Physical Exam Vitals Vital Signs Date Temp Pulse Resp B/P (MAP) Pulse Ox O2 O2 Flow FiO2 Time Delivery Rate 10/05/18 97.9 55 20 161/69 99 17:06 (99) Physical Exam Const: No acute distress Head: Atraumatic Eyes: Normal Conjunctiva ENT: Normal External Ears, Nose and Mouth. Neck: Full range of motion. No meningismus. Resp: Clear to auscultation bilaterally Cardio: Regular rate and rhythm, no murmurs Abd: Laparoscopic surgical sites noted, clean dry and intact. Right lower abdomen with Leonides drain, sutured in place. There is drainage of serosanguineous fluid in the drain as well as the bulb. Overlying gauze is saturated with serosanguineous fluid. No purulent drainage noted. No abdominal wall erythema. Soft, non tender, non distended. Normal bowel sounds Skin: No petechiae or rashes Back: No midline or flank tenderness Ext: No cyanosis, or edema Neur: Awake and alert Psych: Normal Mood and Affect Procedures/MDM Patient is presenting for serosanguineous drainage around the Leonides drain site. However the drain itself is draining well. I spoke with , and he is not concerned as long as the drain is working properly and the fluid is serosanguineous. He recommended frequent dressing changes as needed. He will follow-up with the patient in a few days. Return precautions were discussed with the patient. They were reassured. Wound care was discussed. Departure Diagnosis: Primary Impression: Open abdominal incision with drainage Encounter type: initial encounter Qualified Codes: T81.31XA - Disruption of external operation (surgical) wound, not elsewhere classified, initial encounter Condition: Stable EKSHALONDA PEREZ MD Oct 05, 2018 19:04
[2018-10-05 19:24] VITALS: BP 161/80; PULSE 60; RESP 20
== END 2018-10-05 19:32 | disposition home or self-care (01) ==
LOC: E/R 16:56
DX: T81.31XA Disruption of external operation (surgical) wound, not elsewhere classified, initial encounter (principal); Y73.3 Surgical instruments, materials and gastroenterology and urology devices (including sutures) associated with adverse incidents; Z86.018 Personal history of other benign neoplasm
CPT/HCPCS: 99281